=== PATIENT | female | born 1955 | race Caucasian/White ===

== ENCOUNTER 2018-01-05 00:06 | Emergency (ER) | payer OTHER ==
--- NOTE | 2018-01-05 00:16 | ED Physician Documentation ---
General Adult - HISTORIAN Historian: patient - HPI Stated Complaint: needs her nova cath replaced Chief Complaint: General Adult Onset: hours (1) Timing: still present Severity: mild Further Comments: yes (She needs her nova cath replaced as it fell out tonight and she has a specialist in [place] who is not open at this time. She denies any pain or concerns) - ROS CONST: no problems - PAST HX Past History: other (DM, Mitral valve prolapse, GERD, hypothyroidism, urinary re tention ) Surgeries/Procedures: cholecystectomy, other (back surgery, Left mastectomy T&A) Immunizations: UTD Allergies/Adverse Reactions: Allergies Allergy/AdvReac Type Severity Reaction Status Date / Time adhesive tape Allergy Intermediate Rash Verified 01/05/18 00:35 morphine Allergy Intermediate Itchy Skin Verified 01/05/18 00:35 Home Medications: Ambulatory Orders Medication Instructions Recorded Furosemide 20 mg PO D 01/05/18 Gabapentin 300 mg PO DIRECTED 01/05/18 Levothyroxine Sodium [Synthroid] 100 mcg PO D 01/05/18 Metformin HCl [Glucophage] 500 mg PO BID 01/05/18 Omeprazole 20 mg PO D 01/05/18 Pravastatin Sodium 80 mg PO D 01/05/18 buPROPion [Wellbutrin Sr] 150 mg PO DIRECTED 01/05/18 oxyCODONE HCL [Percolone] 5 mg PO DIRECTED 01/05/18 - SOCIAL HX Smoking History: non-smoker Alcohol Use: none Drug Use: none - FAMILY HX Family History: No - VITAL SIGNS Vital Signs: Vital Signs Temp Pulse Resp BP Pulse Ox 166/66 04/27/16 03:41 - REVIEWED ASSESSMENTS Nursing Assessment Reviewed: Yes Vitals Reviewed: Yes General Adult Physical Exam - PHYSICAL EXAM GENERAL APPEARANCE: no distress EENT: eye inspection normal NECK: normal inspection RESPIRATORY: no resp distress, chest non-tender, breath sounds normal CVS: reg rate & rhythm, heart sounds normal, equal pulses ABDOMEN: soft, normal bowel sounds, no distension, non-tender BACK: normal inspection SKIN: warm/dry, normal color EXTREMITIES: non-tender, other (in a wheelchair due to back issues ) NEURO: oriented X3, CN's nml as tested, motor nml, sensation nml, mood/affect nml, cognition normal Discharge Clincal Impression: Urinary retention Referrals: Primary Doctor,No [REFERRING] - 2 Days Comments: 1. Keep nova secure 2. See PCP or specialist as scheduled 3. Return to ER for any concerns Condition: Stable Disposition: 01 HOME, SELF-CARE Decision to Admit: NO Date of Decison to Admit: 01/05/18 Decision Time: 00:58
[2018-01-05 01:23] VITALS: BP 140/37
== END 2018-01-05 01:13 | disposition home or self-care (01) ==
LOC: ED 00:06
DX: R33.9 Retention of urine, unspecified (principal)
CPT/HCPCS: 51702